=== PATIENT | male | born 1975 | race Caucasian/White ===

== ENCOUNTER 2019-03-01 16:48 | Emergency (ER) | payer OTHER ==
[~2019-03-01] VITALS: Ht 167.6 cm; Wt 85.7 kg
[2019-03-01 17:13] VITALS: BP 119/81
--- NOTE | 2019-03-01 17:26 | NUR ---
working on car during work had a piece of metal puncture left forearm---tender light discoloration no sanguineous drainage noted at this time 3 YEARS AGO last tetanus----+2 radial pulse hx--denies rx---none
--- NOTE | 2019-03-01 17:58 | NUR ---
PT TO ER BED 1
[2019-03-01 19:04] VITALS: BP 116/78
== END 2019-03-01 19:04 | disposition home or self-care (01) ==
LOC: MED 16:48
DX: S51.832A Puncture wound without foreign body of left forearm, initial encounter (principal); M79.5 Residual foreign body in soft tissue; W22.8XXA Striking against or struck by other objects, initial encounter; Y93.89 Activity, other specified; Y92.89 Other specified places as the place of occurrence of the external cause; Y99.8 Other external cause status
CPT/HCPCS: 73090; 90471; 90715; 99283